=== PATIENT | male | born 1990 | race Caucasian/White ===

== ENCOUNTER 2016-08-20 17:32 | Emergency (ER) | payer OTHER | END 2016-08-20 18:40 | disposition home or self-care (01) | LOC: ER1 17:32 | DX: S39.012A Strain of muscle, fascia and tendon of lower back, initial encounter (principal); F17.210 Nicotine dependence, cigarettes, uncomplicated; X58.XXXA Exposure to other specified factors, initial encounter | CPT/HCPCS: 72100; 96372; 99283; J1100; J1885 ==